=== PATIENT | female | born 1980 | race Two or more races ===

== ENCOUNTER 2018-01-21 05:15 | Day surgery (SDC) | payer OTHER ==
[2018-01-20 12:04] VITALS: BMI 22.5
--- NOTE | 2018-01-21 07:18 | HP ---
History & Physical Update - Physical Physical: No Change - Assessment Assessment: No Change - Plan Plan: No Change
[2018-01-21] MEDS ORDERED: ONDANSETRON 4 MG/2 ML VIAL IVPUSH PRN ×2 (08:26→08:42)
[2018-01-21] MEDS ORDERED: oxyCODONE HCL 5 MG TABLET PO PRN ×2 (08:26→08:42)
[2018-01-21] MEDS ORDERED: ELECTROLYTE-148 SOLN 1,000 ML IV SCH (08:30)
[2018-01-21] MEDS ORDERED: PROMETHAZINE HCL 25 MG/1 ML VIAL IVPB PRN (08:42)
[2018-01-21] MEDS ORDERED: LACTATED RINGERS SOLUTION 1,000 ML IV SCH (08:45)
[2018-01-21 11:19] VITALS: PULSE 70
[2018-01-21 11:58] VITALS: BP 120/70; TEMP 97.8
--- NOTE | 2018-01-21 12:48 | OP ---
DATE OF OPERATION: 01/21/2018 PREOPERATIVE DIAGNOSIS: Menometrorrhagia, rule out endometrial polyp or cervical myoma. SURGEON: Bradley Gutierres MD ANESTHESIA: General. ANESTHESIOLOGIST: Drea Navarro MD ESTIMATED BLOOD LOSS: 25 mL. PROCEDURE: Hysteroscopy, resection of cervical polyp or myoma, and dilatation and curettage. DESCRIPTION OF PROCEDURE: The patient was taken to the operating room, had adequate general anesthesia in dorsal lithotomy position. Examination under anesthesia revealed external genitalia to be normal. Vagina was normal. Cervix was clean, no gross lesion. Uterus was anteverted, normal in size. Adnexa, no masses were palpable. Then, with a weighted speculum in the vagina, anterior lip of the cervix was grasped with a single-tooth tenaculum. Uterine cavity was sounded to 8 cm. Then, cervix was slightly dilated with Hegar dilator, and then, Symphion Resectoscope was introduced, and first the endometrial polyp in the lower uterine segment was resected in its entirety, and then, submucous myoma also was resected with the Symphion Resectoscope was introduced. There was difficulty in introducing the Symphion Resectoscope because there appeared to be a cervical myoma versus cervical polyp in the cervical area. So, after resectoscope was introduced into the cervix, the fibroid first was resected from the cervix, and then, we were able to reduce the Symphion Resectoscope and then, both cornual regions were identified. No other abnormality was seen. Then, resectoscope was withdrawn, and D and C was done. Patient tolerated the procedure well, left the OR in good condition. Michael [id number]
--- NOTE | 2018-01-24 14:56 | PATH ---
Surgical Pathology Report Patient Name: PHUC UGARTE [facility]. Rec. #: [id number] /Age/Gender: 1980 (Age: 37) / F Account: [id number] Location: [facility] SURGICAL Taken: 01/21/2018 Received: 01/21/2018 Reported: 01/24/2018 Physicians: Bradley Gutierres M.D. Specimen(s) Received A: CERVICAL MYOMA B: ENDOMETRIAL CURETTINGS Clinical History Fibroids uterus, menorrhagia Final Diagnosis A. 'CERVICAL MYOMA', DILATION AND CURETTAGE: FRAGMENTS OF ENDOCERVICAL POLYP AND BENIGN CERVICAL SQUAMOUS MUCOSA B. ENDOMETRIAL CURETTINGS, DILATION AND CURETTAGE: FRAGMENTS OF ENDOCERVIX WITH FOCAL MICROGLANDULAR HYPERPLASIA AND BENIGN SQUAMOUS CERVICAL MUCOSA. NO ENDOMETRIAL GLANDS IDENTIFIED. Electronically Signed Molly Saldaña M.D. Gross Description A. Received in formalin, labeled "cervical myoma" are multiple bellamy, irregular portions of soft tissue measuring 1.0 x 1.0 x 0.2 centimeters in aggregate. The specimens are submitted in toto in one cassette. B. Received in formalin, labeled "endometrial curettings" are multiple dark brown portions of soft tissue measuring 1.0 x 1.0 x 0.2 cm in aggregate. The specimens are submitted in toto in 1 cassette. SHEILA/01/21/2018 katie/01/21/2018
== END 2018-01-21 11:59 | disposition home or self-care (01) ==
LOC: JASU-SURG 05:15
PROVIDERS: ATTEND Obstetrics & Gynecology
PROC: 0UJD8ZZ Inspection of Uterus and Cervix, Via Natural or Artificial Opening Endoscopic (ICD-10-PCS; 2018-01-21)
PROC: 0UB98ZZ Excision of Uterus, Via Natural or Artificial Opening Endoscopic (ICD-10-PCS; principal; 2018-01-21 08:00)
PROC: 0UDB7ZX Extraction of Endometrium, Via Natural or Artificial Opening, Diagnostic (ICD-10-PCS; 2018-01-21 08:00)
DX: N92.1 Excessive and frequent menstruation with irregular cycle (principal); D25.0 Submucous leiomyoma of uterus; D26.0 Other benign neoplasm of cervix uteri
CPT/HCPCS: 88305-TC; 94760

== ENCOUNTER 2021-04-09 20:00 | Inpatient (IN) | payer BC ==
[2021-04-09] MEDS ORDERED: AMPICILLIN SODIUM 2 GM VIAL ONE (21:01)
[2021-04-09] MEDS: ELECTROLYTE-148 SOLN 1,000 ML IV SCH (21:15)
[2021-04-09] MEDS ORDERED: AMPICILLIN SODIUM 2 GM VIAL IVPB ONE (21:30)
[2021-04-09 22:05] LABS: BASO % 0.3 % (0-2.0); EOS % 0.2 % (0-4.5); HEMATOCRIT 33.6 % (32.4-45.2); LYMPH % 19.1 % (8-40); MCH 28.5 pg (25.7-33.7); MCHC 32.8 g/dl (32.0-36.0); MEAN CELL VOLUME 86.8 fl (80-96); MEAN PLT VOLUME 8.2 fl (7.5-11.1); MONO % 8.8 % (3.8-10.2); NEUT % 71.6 % (42.8-82.8); PLATELET COUNT 214 10^3/uL (134-434); RBC 3.87 M/mm3 (3.60-5.2); RDW 13.9 % (11.6-15.6)
[2021-04-09 22:12] LABS: INR 0.88 (0.83-1.09); PROTHROMBIN TIME (PATIENT) 10.1 SEC (9.7-13.0)
[2021-04-09 22:14] LABS: ACTIVATED PTT 26.9 SECONDS (25.2-36.5)
[2021-04-09 22:33] LABS: CALCIUM 8.7 mg/dL (8.5-10.1)
[2021-04-09 22:38] LABS: CREATININE 0.7 mg/dL (0.55-1.3)
[2021-04-09 22:39] VITALS: BMI 31.1
[2021-04-09 22:44] LABS: BLOOD UREA NITROGEN 9.2 mg/dL (7-18)
[2021-04-09 23:29] LABS: HIV INTERPRETATION NEGATIVE (NEGATIVE)
[2021-04-10] MEDS ORDERED: FENTANYL/BUPIVACAINE/NS/PF - PCEA - 50 ML DISP.SYRIN EP ONE ×4 (00:09→12:30)
[2021-04-10] MEDS ORDERED: NALOXONE HCL 0.4 MG/ML VIAL IVPUSH PRN (00:30)
[2021-04-10] MEDS ORDERED: BUPIVACAINE HCL/PF 0.25% (2.5MG/ML) 10 ML VIAL ONE ×2 (00:31→12:49)
[2021-04-10] MEDS: AMPICILLIN SODIUM 1 GM VIAL IVPB SCH ×5 (01:30→19:42)
[2021-04-10] MEDS ORDERED: AMPICILLIN SODIUM 1 GM VIAL ONE ×3 (01:35→09:37)
[2021-04-10] MEDS: FENTANYL/BUPIVACAINE/NS/PF - PCEA - 50 ML DISP.SYRIN EP SCH ×3 (01:50→09:00)
[2021-04-10] MEDS: ELECTROLYTE-148 SOLN 1,000 ML IV SCH (05:15)
[2021-04-10] MEDS ORDERED: OXYTOCIN 30 UNITS in 0.9% NS 30 UNIT/500 ML INFUS.BAG IVPB ONE (08:34)
[2021-04-10] MEDS ORDERED: OXYTOCIN 30 UNITS in 0.9% NS 30 UNIT/500 ML INFUS.BAG IVPB SCH (08:45)
[2021-04-10] MEDS ORDERED: OXYTOCIN 20 UNITS in 0.9% NS 20 UNIT/1,000 ML INFUS.BAG IV ONE (13:45)
[2021-04-10] MEDS ORDERED: LIDOCAINE HCL 1% PRESERVATIVE FREE - 30ML VIAL ONE (16:00)
[2021-04-10] MEDS ORDERED: BISACODYL 10 MG SUPP.RECT RC PRN (16:32)
[2021-04-10] MEDS ORDERED: WITCH HAZEL 50% (TUCKS) 40 PAD/JAR PAD TP PRN (16:32)
[2021-04-10] MEDS ORDERED: METHYLERGONOVINE MALEATE 0.2 MG/1 ML AMP IM PRN (16:32)
[2021-04-10] MEDS ORDERED: BENZOCAINE 28 GM HEMORRHOIDAL OINTMENT TP PRN (16:32)
[2021-04-10] MEDS ORDERED: IBUPROFEN 600 MG TABLET (FP) PO PRN (16:32)
[2021-04-10] MEDS ORDERED: oxyCODONE HCL 5 MG TABLET PO PRN (16:32)
[2021-04-10] MEDS ORDERED: OXYTOCIN 20 UNITS in 0.9% NS 20 UNIT/1,000 ML INFUS.BAG IV SCH (16:45)
[2021-04-10 17:30] LABS: CORD HCO3 22.6 mmHg (20-29); CORD PCO2 42.5 mmHg (30-78); CORD pH 7.344 (7.14-7.44)
[2021-04-10 17:33] LABS: CORD BASE EXCESS -2.9 mmol/L (0-2); CORD HCO3 22.8 mmHg (20-29); CORD PCO2 42.7 mmHg (30-78); CORD pH 7.345 (7.14-7.44)
[2021-04-10] MEDS: BENZOCAINE 20% 57 GM BOTTLE TP PRN (19:53)
[2021-04-10] MEDS: ACETAMINOPHEN 325 MG TABLET (FP) PO PRN (19:54)
[2021-04-11] MEDS: ACETAMINOPHEN 325 MG TABLET (FP) PO PRN ×4 (00:17→21:12)
[2021-04-11 07:45] LABS: BASO % 0.2 % (0-2.0); EOS % 0.3 % (0-4.5); HEMATOCRIT 28.4 % (32.4-45.2); HEMOGLOBIN 9.5 GM/dL (10.7-15.3); LYMPH % 12.6 % (8-40); MCHC 33.5 g/dl (32.0-36.0); MEAN CELL VOLUME 86.5 fl (80-96); MEAN PLT VOLUME 8.3 fl (7.5-11.1); MONO % 7.7 % (3.8-10.2); NEUT % 79.2 % (42.8-82.8); PLATELET COUNT 172 10^3/uL (134-434); RBC 3.29 M/mm3 (3.60-5.2); RDW 13.9 % (11.6-15.6); WHITE BLOOD COUNT 10.3 K/mm3 (4.0-10.0)
[2021-04-11] MEDS ORDERED: SENNOSIDES/DOCUSATE COMBO (SENNA PLUS) TABLET (UD) PO PRN (22:00)
[2021-04-11] MEDS ORDERED: INSULIN SLIDING SCALE (NOVOLOG) 1 VIAL SQ ONE (22:11)
[2021-04-12] MEDS: ACETAMINOPHEN 325 MG TABLET (FP) PO PRN (08:26)
[2021-04-12] MEDS: BENZOCAINE 20% 57 GM BOTTLE TP PRN (08:26)
[2021-04-12 11:46] VITALS: BP 122/75; PULSE 85; TEMP 98
== END 2021-04-12 13:30 | disposition home or self-care (01) | DRG 807 ==
LOC: JDEL 20:00 → JLDR 20:50 → J3W 04-10 18:10
PROVIDERS: ADMIT Obstetrics & Gynecology; ATTEND Obstetrics & Gynecology
PROC: 10E0XZZ Delivery of Products of Conception, External Approach (ICD-10-PCS; principal; 2021-04-10)
PROC: 0W8NXZZ Division of Female Perineum, External Approach (ICD-10-PCS; 2021-04-10)
DX: O42.02 Full-term premature rupture of membranes, onset of labor within 24 hours of rupture (principal); Z37.0 Single live birth; O69.1XX0 Labor and delivery complicated by cord around neck, with compression, not applicable or unspecified; Z3A.39 39 weeks gestation of pregnancy
CPT/HCPCS: 36415; 36600; 59409; 80048; 82803; 85025; 85610; 85730; 86780; 86850; 86900; 86901; 87389; C9803; U0003; U0005